=== PATIENT | male | born 1960 | race Caucasian/White ===

== ENCOUNTER 2018-02-28 13:50 | Outpatient (CLI) | payer OTHER ==
--- NOTE | 2018-02-28 14:51 | RAD ---
LUMBAR SPINE THREE VIEWS: History: 57-year-old male with history of disability evaluation and low back pain. FINDINGS: There is approximately 0.9 cm anterolisthesis of L5 on S1 with what appears to be status post-operati ve laminectomy change. Spondylosis with narrowing at L4-5, and L3-4 levels. No acute compression frac ture. IMPRESSION: Anterolisthesis of L5 on S1 with what appears to be some associated post-operative changes. Lumbar sp ondylosis. No acute fracture. POS: C
== END 2018-02-28 13:51 | disposition home or self-care (01) ==
LOC: NAV PT 13:50 → NAV RAD 13:51
PROVIDERS: ATTEND Family Medicine
DX: M54.5 Low back pain (principal); M47.896 Other spondylosis, lumbar region; M43.17 Spondylolisthesis, lumbosacral region; Z98.890 Other specified postprocedural states
CPT/HCPCS: 72100